=== PATIENT | female | born 1985 | race Caucasian/White ===

== ENCOUNTER 2017-02-04 15:15 | Observation (INO) | payer MEDICAID ==
[2017-02-04] MEDS ORDERED: PREN1TAB89 PO (15:55)
[2017-02-04 16:10] VITALS: BP 107/72
== END 2017-02-04 16:45 | disposition home or self-care (01) ==
LOC: 4S 15:15
PROVIDERS: ADMIT Obstetrics & Gynecology; ATTEND Obstetrics & Gynecology
DX: O21.2 Late vomiting of pregnancy (principal); O26.893 Other specified pregnancy related conditions, third trimester; R42 Dizziness and giddiness; R51 Headache; Z3A.34 34 weeks gestation of pregnancy
CPT/HCPCS: 59025; G0378